=== PATIENT | male | born 1965 | race Caucasian/White ===

== ENCOUNTER 2018-11-01 09:56 | Outpatient (REF) | payer BC, SELFPAY ==
[2018-11-01 22:43] LABS: Anion Gap 10.1 mmol/L (3-11); BUN 19 mg/dL (7-18); CO2 24.9 mmol/L (21.0-32.0); CREATININE 0.82 mg/dL (0.70-1.30); Calcium 9.1 mg/dL (8.5-10.1); Calculated LDL 146 mg/dL; Chloride 105 mmol/L (98-107); Cholesterol 210 mg/dL (50-200); Glucose 98 mg/dL (70-100); HDL Cholesterol 34 mg/dL (40-60); Potassium 4.9 mmol/L (3.5-5.1); Sodium 140 mmol/L (136-145); Triglyceride 154 mg/dL (30-150)
== END 2018-11-01 10:16 ==
LOC: NCHCN 09:56
PROVIDERS: Visit Provider Registered Nurse
DX: I10 Essential (primary) hypertension (principal)
CPT/HCPCS: 80048; 80061; 83721

== ENCOUNTER 2018-11-21 08:30 | Outpatient (REF) | payer BC, SELFPAY ==
[2018-11-21 21:47] LABS: Anion Gap 9.6 mmol/L (3-11); BUN 19 mg/dL (7-18); CO2 26.4 mmol/L (21.0-32.0); CREATININE 0.86 mg/dL (0.70-1.30); Calcium 9.2 mg/dL (8.5-10.1); Chloride 102 mmol/L (98-107); Glucose 95 mg/dL (70-100); Potassium 5.3 mmol/L (3.5-5.1); Sodium 138 mmol/L (136-145)
== END 2018-11-21 08:50 ==
LOC: NCHCN 08:30
PROVIDERS: PCP Registered Nurse; Visit Provider Registered Nurse
DX: I10 Essential (primary) hypertension (principal)
CPT/HCPCS: 80048

== ENCOUNTER 2018-12-12 08:12 | Outpatient (REF) | payer BC, SELFPAY ==
[2018-12-13 09:19] LABS: Potassium 4.7 mmol/L (3.5-5.1)
== END 2018-12-12 08:32 ==
LOC: NCHCN 08:12
PROVIDERS: PCP Registered Nurse; Visit Provider Registered Nurse
DX: E87.5 Hyperkalemia (principal)
CPT/HCPCS: 84132

== ENCOUNTER 2020-08-13 17:22 | Outpatient (REF) | payer MEDICAID, SELFPAY ==
[2020-08-13 22:13] LABS: Calculated LDL 62 mg/dL (<100); Cholesterol 111 mg/dL (<200); HDL Cholesterol 34 mg/dL (40-60); Triglyceride 79 mg/dL (<150)
[2020-08-15 10:02] LABS: Hepatitis C Ab w Rflx HCV PCR Negative (Negative)
== END 2020-08-13 17:23 | disposition home or self-care (01) ==
LOC: NCHCN 17:22
PROVIDERS: PCP Registered Nurse; Visit Provider Registered Nurse
DX: E78.5 Hyperlipidemia, unspecified (principal); Z11.59 Encounter for screening for other viral diseases
CPT/HCPCS: 80061; 86803

== ENCOUNTER 2022-07-08 20:48 | Outpatient (REF) | payer MEDICAID, SELFPAY ==
[2022-07-08 21:26] LABS: ALT 30 U/L (16-63); AST 21 U/L (15-37); Alkaline Phosphatase 57 U/L (46-116); Anion Gap 7.7 mmol/L (3-11); BUN 20 mg/dL (7-18); Bilirubin, Total 0.3 mg/dL (0.2-1.0); CO2 28.3 mmol/L (21.0-32.0); CREATININE 0.9 mg/dL (0.70-1.30); Calcium 9.2 mg/dL (8.5-10.1); Calculated LDL 64 mg/dL (<100); Chloride 105 mmol/L (98-107); Cholesterol 124 mg/dL (<200); Estimated GFR 100.24 (mL/min/1.73m2); Glucose 104 mg/dL (74-106); HDL Cholesterol 33 mg/dL (40-60); Potassium 4.5 mmol/L (3.5-5.1); Sodium 141 mmol/L (136-145); Total Protein 6.7 g/dL (6.4-8.2); Triglyceride 138 mg/dL (<150)
[2022-07-09 19:24] LABS: PSA, Screening 1.6 ng/mL (<=3.5)
== END 2022-07-08 20:49 | disposition home or self-care (01) ==
LOC: NCHCN 20:48
PROVIDERS: PCP Registered Nurse; Visit Provider Registered Nurse
DX: I10 Essential (primary) hypertension (principal); E78.5 Hyperlipidemia, unspecified; F17.210 Nicotine dependence, cigarettes, uncomplicated; Z12.5 Encounter for screening for malignant neoplasm of prostate
CPT/HCPCS: 80053; 80061; 84153

== ENCOUNTER 2022-12-29 18:04 | Outpatient (REF) | payer MEDICAID, SELFPAY ==
[2022-12-29 22:25] LABS: Anion Gap 7.9 mmol/L (3-11); BUN 24 mg/dL (7-18); CO2 29.1 mmol/L (21.0-32.0); CREATININE 1.1 mg/dL (0.70-1.30); Calcium 9.3 mg/dL (8.5-10.1); Chloride 101 mmol/L (98-107); Glucose 133 mg/dL (74-106); Potassium 3.8 mmol/L (3.5-5.1); Sodium 138 mmol/L (136-145)
== END 2022-12-29 18:05 | disposition home or self-care (01) ==
LOC: NCHCN 18:04
PROVIDERS: PCP Registered Nurse; Visit Provider Registered Nurse
DX: I10 Essential (primary) hypertension (principal)
CPT/HCPCS: 80048

== ENCOUNTER 2023-08-16 09:56 | Outpatient (REF) | payer MEDICAID, SELFPAY ==
[2023-08-16 16:45] LABS: ALT 32 U/L (16-63); AST 17 U/L (15-37); Alkaline Phosphatase 62 U/L (46-116); Anion Gap 11.3 mmol/L (3-11); BUN 21 mg/dL (7-18); Bilirubin, Total 0.4 mg/dL (0.2-1.0); CO2 24.7 mmol/L (21.0-32.0); CREATININE 0.8 mg/dL (0.70-1.30); Calculated LDL 83 mg/dL (<100); Chloride 104 mmol/L (98-107); Cholesterol 140 mg/dL (<200); Estimated GFR 102.58 (mL/min/1.73m2); Glucose 118 mg/dL (74-106); HDL Cholesterol 45 mg/dL (40-60); Potassium 4.3 mmol/L (3.5-5.1); Sodium 140 mmol/L (136-145); Total Protein 7.4 g/dL (6.4-8.2); Triglyceride 61 mg/dL (<150)
[2023-08-16 16:58] LABS: Calcium 8.9 mg/dL (8.5-10.1)
== END 2023-08-16 09:57 | disposition home or self-care (01) ==
LOC: NCHCN 09:56
PROVIDERS: PCP Registered Nurse; Visit Provider Family Medicine
DX: E78.5 Hyperlipidemia, unspecified (principal); I10 Essential (primary) hypertension
CPT/HCPCS: 80053; 80061